=== PATIENT | female | born 1955 | race Caucasian/White ===

== ENCOUNTER 2016-12-11 23:21 | Emergency (ER) | payer BC ==
[~2016-12-11] VITALS: Ht 165.1 cm; Wt 72.0 kg
[2016-12-11 23:23] VITALS: BP 142/73; PULSE 60; RESP 16; TEMP 97.9; O2SAT 98
--- NOTE | 2016-12-12 00:49 | RADRPT ---
EXAM DATE/TIME: 12/12/2016 00:40 [place] COMPARISON: No previous studies available for comparison. INDICATIONS : Fell off of stool- pain to left great toe and ball of foot MEDICAL HISTORY : None. SURGICAL HISTORY : None. ENCOUNTER: Initial ACUITY: 1 day PAIN SCORE: 7/10 LOCATION: Left Foot FINDINGS: 2 views of the left first digit demonstrate a fracture through the distal metaphysis and epiphysis of the first digit proximal phalanx. The fracture line extends into the interphalangeal joint. There is 2 mm of medial displacement of the fracture fragment. No other fracture or dislocation is seen. No s oft tissue abnormality or radiopaque foreign body is identified. CONCLUSION: There is a minimally displaced acute fracture of the first digit proximal phalanx involving the dista l metaphysis and epiphysis, as above. Shabbir Moser MD on December 12, 2016 at 0:46 Board Certified Radiologist. This report was verified electronically.
[2016-12-12] MEDS ORDERED: NORC5TAB PO (00:53)
--- NOTE | 2016-12-12 00:59 | PD ---
HPI Chief Complaint: Injury Time Seen by Provider: 12:30 Travel History International Travel<30 days: No Contact w/Intl Traveler<30days: No Traveled to known affect area: No History of Present Illness HPI Patient comes in complaining of left great toe pain that began shortly prior to arrival. Patient states she slipped off of a stool causing her toe to go the wrong direction. Pain is throbbing aching pain over the distal joint of the great toe. Denies any radiation of pain. Pain is worse with walking and palpating. Patient has tried icing it prior to coming emergency department with no improvement of symptoms. [facility] Past Medical History Narrative Medical Neuropathy Cerebrovascular Accident: Yes (hemorrhagic) Immunizations Current: Yes Tetanus Vaccination: Unknown Influenza Vaccination: No Social History Alcohol Use: No Tobacco Use: No Substance Use: No Allergies-Medications (Allergen,Severity, Reaction): Coded Allergies: No Known Allergies (Unverified , 12/11/16) Reported Meds & Prescriptions Reported Meds & Active Scripts Active Veteran (Hydrocodone-Acetaminophen) 5-325 mg Tab 1 Tab PO Q8HR PRN Review of Systems Except as stated in HPI: all other systems reviewed are Neg Physical Exam Narrative GENERAL: Well-developed, overly nourished, in no acute distress, and non-ill appearing. SKIN: Focused skin assessment warm and dry. HEAD: Atraumatic. Normocephalic. EYES: Pupils equal and round. EOMI. No scleral icterus. No injection or drainage. ENT: No nasal bleeding or discharge. Mucous membranes pink and moist. NECK: Trachea midline. Supple. No nuclear rigidity. CARDIOVASCULAR: Dorsal pulses 2+, intact, and equal bilaterally. Capillary refill less than 2 seconds. No pedal edema. RESPIRATORY: No accessory muscle use. No respiratory distress. MUSCULOSKELETAL: No obvious deformities. No clubbing. No cyanosis. No edema. Decreased range of motion left great toe secondary to pain. Patient ports tenderness to palpation over left great toe. Patient obvious deformity. Neurovascularly intact. NEUROLOGICAL: Awake and alert. No obvious cranial nerve deficits. Motor grossly within normal limits. Normal speech. PSYCHIATRIC: Appropriate mood and affect; insight and judgment normal. Data Data Last Documented VS Vital Signs Date Time Temp Pulse Resp B/P Pulse Ox O2 Delivery O2 Flow Rate FiO2 12/11/16 23:23 97.9 60 16 142/73 98 Room Air Orders Toe (Min 2vws) (12/12/16 ) Splint Or Brace Apply/Monitor (12/12/16 00:53) Shoe Cast (12/12/16 ) [facility] Medical Decision Making Medical Screen Exam Complete: Yes Emergency Medical Condition: Yes Interpretation(s) X-ray left great toe read by the radiologist shows: There is a minimally displaced acute fracture of the first digit proximal phalanx involving the distal metaphysis and epiphysis. Differential Diagnosis Fracture, sprain, contusion, dislocation, other Narrative Course The patient sustained a fracture. The distal extremity appears neurovascularly intact, without evidence of neurovascular injury nor compartment syndrome. Tendon exam also was intact. The effected toe was alka taped and placed in postop shoe. The patient was discharged on pain medication along with fracture and splint care instructions and given warnings for vascular compromise. The patient is to follow up with podiatry. The patient agrees with plan. Patient in no obvious distress upon re-evaluation. All pertinent Radiology result(s) discussed with patient. Patient was asked if they wanted to speak to my attending, which the patient did not wish to do at this time. Any questions/ concerns in reference to patient diagnosis/condition discussed and clarified prior to patient's discharge. Reinforced sheer importance of close follow up with patient's primary physician or primary care clinic and special education para professional. Instructed patient to return to ED immediately, if symptoms return/worsen. Pt showed understanding of above instructions. Further instructions and recommendations were detailed in discharge paperwork. Pt ambulated without difficulty out of ED at discharge. Diagnosis Primary Impression: Toe fracture, left Qualified Code: S92.402A - Closed displaced fracture of phalanx of left great toe, unspecified phalanx, initial encounter Referrals: Jericho Corrales DPM Patient Instructions: General Instructions, Toe Fracture (DC) Additional Instructions: Follow-up with your primary care physician and/or special education para professional in 2-3 days for reevaluation. Take all medication as prescribed. Apply ice to affected area 20 minutes per hour as needed for pain. Return to the emergency department if symptoms get worse. Med/Other Pt SpecificInfo: Prescription(s) given Scripts Hydrocodone-Acetaminophen (Veteran)5-325 mg Tab1 Tab PO Q8HR PRN (PAIN) #9 TAB Ref 0 Prov:Jason Umanzor MD 12/12/16 Disposition: 01 DISCHARGE HOME Condition: Stable Kapil Munroe Dec 12, 2016 00:59
== END 2016-12-12 03:01 | disposition home or self-care (01) ==
LOC: NEPD 23:21
DX: S92.402A Displaced unspecified fracture of left great toe, initial encounter for closed fracture (principal); W22.8XXA Striking against or struck by other objects, initial encounter
CPT/HCPCS: 73660; 99283; L3260